=== PATIENT | female | born 1970 ===

== ENCOUNTER 2018-06-10 11:53 | Day surgery (SDC) | payer OTHER ==
[2018-06-10] MEDS ORDERED: LEVONORGESTREL 1 EACH IUD IY ONE (11:54)
[2018-06-10] MEDS ORDERED: LIDOCAINE 1% 50 ML MDV ONE (12:28)
[2018-06-10 12:37] LABS: HCG UR QUAL NEGATIVE
--- NOTE | 2018-06-10 12:37 | ANESTHESIA ---
Pre-Anesthesia VS, & Labs - Diagnosis Abnormal uterine bleeding - Procedure hysterscopy D&C, mirena IUD insertion Vital Signs: Temp Pulse Resp BP Pulse Ox 36.2 C L 66 12 120/97 H 100 06/10/18 12:30 06/10/18 12:30 06/10/18 12:30 06/10/18 12:30 06/10/18 12:30 Height 5 ft 7 in Weight (kg) 81.65 kg Height 5 ft 7 in Weight (kg) 80 kg - NPO >8 hours Last Fluid Intake: Coffee at 10am - Is Patient ?: No - Lab Results Lab results reviewed: Yes Home Medications and Allergies Home Medications: Ambulatory Orders Carboxymethylcellulos/Glycerin [Refresh Optive Eye Drops] 5 ml OP 06/08/18 Ibuprofen [Motrin] 600 mg PO Q6H PRN 06/08/18 Sennosides/Docusate Sodium [Stool Softener-Laxative Tablet] 1 each PO 06/08/18 Carboxymethylcellulos/Glycerin [Refresh Optive Eye Drops] 5 ml OP 06/08/18 Ibuprofen [Motrin] 600 mg PO Q6H PRN 06/08/18 Sennosides/Docusate Sodium [Stool Softener-Laxative Tablet] 1 each PO 06/08/18 Allergies/Adverse Reactions: Allergies Allergy/AdvReac Type Severity Reaction Status Date / Time aspirin Allergy Nausea Verified 06/08/18 10:30 Anes History & Medical History - Anesthetic History Family history of Anesthesia Complications: Denies Family history of Malignant Hyperthermia: Denies - Medical History Cardiovascular: reports: None Pulmonary: reports: None Gastrointestinal: reports: None Urinary: reports: None Neuro: reports: None Musculoskeletal: reports: None Endocrine/Autoimmune: reports: None Blood Disorders: reports: None. denies: Idiopathic thrombocytopenic purpura Skin: reports: None Smoking Status: Never smoker Psychosocial: reports: No issues indicated - Surgical History General: Colonoscopy Exam General: Alert, Oriented x3, Cooperative, No acute distress Dental: WNL Mouth Openin Fingerbreadth Neck Mobility: Normal Mallampati classification: II Thyromental Distance: 4-6 cm Respiratory: Lungs clear, Normal breath sounds, No respiratory distress, No accessory muscle use Cardiovascular: Regular rate, Normal S1, Normal S2, No murmurs Mental/Cognitive Status: Alert/Oriented X3, Normal for patient Plan Anesthesia Type: General Consent for Procedure(s) Verified and Reviewed: Yes Code Status: Attempt Resuscitation ASA classification: 2-Mild systemic disease Is this case an emergency?: No
[2018-06-10] MEDS ORDERED: LACTATED RINGERS 1,000 ML IV ONE ×2 (12:52→14:06)
[2018-06-10] MEDS ORDERED: LIDOCAINE 1% 50 ML MDV SUBQ ONE (13:07)
[2018-06-10] MEDS ORDERED: fentaNYL 100 MCG/2 ML VIAL IVP ONE (13:08)
[2018-06-10] MEDS ORDERED: MIDAZOLAM 2 MG/2 ML VIAL IVP ONE (13:08)
[2018-06-10] MEDS ORDERED: ONDANSETRON 4 MG/2 ML VIAL IVP ONE (13:08)
[2018-06-10] MEDS ORDERED: DEXAMETHASONE 4 MG/ML VIAL IVP ONE (13:08)
[2018-06-10] MEDS ORDERED: KETOROLAC 30 MG/ML VIAL IVP ONE (13:08)
[2018-06-10] MEDS ORDERED: PROPOFOL 200 MG/20 ML VIAL IVP ONE (13:08)
[2018-06-10] MEDS ORDERED: SIMETHICONE 40 MG/0.6 ML 30 ML BOTTLE ONE (13:36)
[2018-06-10] MEDS ORDERED: HYDROcod/ACETAM 10 MG/325 MG TABLET PO PRN (13:42)
--- NOTE | 2018-06-10 13:45 | OPERATIVE REPORT ---
Operative Report - General Procedure Date: 06/10/18 Planned Procedure: Hysteroscopy with Myosure, Placement of Mirena IUS Pre-Op Diagnosis: Abnormal uterine bleeding Procedure Performed: Same as above Post Op Diagnosis: Same as above - Procedure Note Primary Surgeon: Nancy Anesthesia Provider: Lanette Anesthesia Technique: General LMA, Regional block Pathology: Endometrial curettings Indications: Abnormal uterine bleeding Findings: Examination under anesthesia revealed a normal-sized anteverted uterus and normal adnexa Operative findings: The uterus sounded to 8.75 cm. The endometrial cavity appeared unremarkable. The cervical os was deviated to the left side of the apparent cervical opening. - Other Other Information/Narrative: The patient was taken to the operating room, where general anesthesia with LMA was administered without difficulty. She was then positioned in the high dorsal lithotomy position with her lower extremities in [place] stirrups. Exam under anesthesia was then performed with the findings as noted above. Vagina and perineum were then prepped and draped in a sterile fashion. Procedure Time- Out was then performed. A sterile bivalved speculum was then placed into the vagina, and the anterior lip of the cervix was grasped with a single-tooth tenaculum. 1% lidocaine was then injected at the 2:00, 4:00, 7:00, and 10:00 positions for a paracervical block. Serial dilation using Hegar dilators was then performed until the Myosure hysteroscope could be advanced. Using saline for distension, the cavity was visualized with the findings as note above. Myosure was used to perform a gentle curettage. The Mirena IUS was placed and its string was shortened to 3 cm. The tenaculum was removed, and the tenaculum sites were made hemostatic with silver nitrate. The speculum was then removed from the vagina. At this point, the procedure was deemed completed. Sponge, lap, and needle count were correct x 3, and there were no complications. The patient was awakened, replaced supine, and transferred to the PACU in stable condition.
[2018-06-10 14:46] VITALS: BP 120/84
== END 2018-06-10 11:54 | disposition home or self-care (01) ==
LOC: SDS 11:53
PROVIDERS: ATTEND Obstetrics & Gynecology
PROC: 0UH98HZ Insertion of Contraceptive Device into Uterus, Via Natural or Artificial Opening Endoscopic (ICD-10-PCS; 2018-06-10)
PROC: 0UDB8ZZ Extraction of Endometrium, Via Natural or Artificial Opening Endoscopic (ICD-10-PCS; principal; 2018-06-10 13:00)
DX: N93.9 Abnormal uterine and vaginal bleeding, unspecified (principal); R93.89 Abnormal findings on diagnostic imaging of other specified body structures; Z98.890 Other specified postprocedural states; Z87.42 Personal history of other diseases of the female genital tract
CPT/HCPCS: 58300; 58558; 81025; A9270; J7120; J7298